=== PATIENT | female | born 1945 | race Caucasian/White ===

== ENCOUNTER 2020-06-10 12:12 | Outpatient (REF) | payer MEDICARE, OTHER, SELFPAY ==
--- NOTE | 2020-06-10 12:46 | XR_ITS ---
EXAMINATION: XR CHEST CLINICAL INFORMATION: Dyspnea. COMPARISON: Right ribs and chest radiographs dated 04/22/2020. TECHNIQUE: 2 views of the chest were obtained. FINDINGS: Support devices: A right-sided central venous port is again seen with tip terminating in the superior vena cava. There has been interval development of a moderate to large right pleural effusion. Minimal extension to the right apex is noted. The left lung is clear. The heart and mediastinal structures are unremarkable. IMPRESSION: 1. Moderate to large right pleural effusion represents significant interval worsening from the previous study.
[2020-06-10 13:18] LABS: Basophils Percent Auto 0.4 % (0-2); Eosinophils Absolute Auto 0.1 X10*3/uL (0.0-0.4); Eosinophils Percent Auto 1.4 % (0-4); Hematocrit 44.1 % (37-47); Hemoglobin 14.3 g/dl (12.0-16.0); Imm Gran Abs Auto 0.01 X10*3/uL (0.00-0.03); Imm Gran Pct Auto 0.2 % (0.0-0.4); Lymphocytes Absolute Auto 0.4 X10*3/uL (1.2-4.9); MANUAL DIFF FLAG SCAN; Mean Corpuscular HGB Conc 32.4 g/dl (31.0-35.0); Mean Corpuscular Hemoglobin 30.7 pg (27.0-33.0); Mean Corpuscular Volume 94.6 fL (80-98); Mean Platelet Volume 9.7 fL (9.4-12.3); Monocytes Absolute Auto 0.3 X10*3/uL (0.1-1.2); Monocytes Percent Auto 6.4 % (2-11); Neutrophils Absolute Auto 4.2 X10*3/uL (2.0-8.3); Neutrophils Percent Auto 84.6 % (45-73); Platelet Count 302 X10*3/uL (160-400); Red Blood Count 4.66 X10*6/uL (4.20-5.50); Red Cell Distribution Width 13.1 % (11.0-16.0); SCAN SMEAR FLAG 1
[2020-06-10 13:39] LABS: Anion Gap 14 (12-20); Blood Urea Nitrogen 8 mg/dL (9-16); Calcium 9.2 mg/dL (8.4-10.2); Carbon Dioxide 26 mmol/L (22-29); Chloride 104 mmol/L (96-108); Estimated Glomerular Filt Rate > 60; Glucose Random 87 mg/dL (60-115); Potassium 3.9 mmol/l (3.3-5.1); Sodium 140 mmol/L (135-145)
[2020-06-10 13:46] LABS: SLIDE REVIEW VERIFIED
== END 2020-06-10 12:13 | disposition home or self-care (01) ==
LOC: HO.LAB 12:12
PROVIDERS: PCP Internal Medicine; Visit Provider Internal Medicine
DX: R06.00 Dyspnea, unspecified (principal)
CPT/HCPCS: 36415; 71046; 80048; 85025

== ENCOUNTER → 2022-01-07 08:26 | Outpatient (RCR) | payer MEDICARE, OTHER, SELFPAY ==
--- NOTE | 2020-06-14 15:44 | MHC.PT.DC ---
[facility] [place] [facility] [place] [facility] [place] [facility] [address] Ivy Sandhu [address] [phone] F: [phone] F: [phone] F: [phone] F: [phone] Physical Therapy Discharge Report Diagnosis: is a 75 y/o female referred to PT for eval and treat of R sided rib pain. Pt reports R sided muscle pull type pain which has worsened since April; Reports XR Reports she had reached to put up a flag on a flag pole which may has precipitated though this is unclear. Pt reports about 3-4 hours of broken sleep at night with largely unrelenting Sx. Trialed trazadone which she reports has not really helped. Reports her pain is fairly constant, reports no aggravating factors to speak, though when asked she reports R sided rib pain with every deep breath, as well as when she coughs and sneezes. She has been assessed as having osteopenia upon bone density in the past. She also has a Hx of rectal CA with chemo therapy and resection in 2019. PMHx: Rectal CA with resection 2019 at [facility], colostomy, incontinence, osteopenia. Date of Surgery: Date of Evaluation: 06/03/20 Date of Discharge: 06/14/20 Treatments to Date: 1 Cancellations to Date: 1 No Shows to Date: 0 Discharge Status: Patient Elected to Stop Physician Discontinued Tx Discharge Summary: Therapy was placed on hold after review of imaging was recommended. Pt called to discontinue PT after f/u with d/t findings in new imaging studies. Electronically signed by: Please sign and return to therapist. Thank you for your referral.
== END | disposition home or self-care (01) ==
LOC: HO.PTCHIC 06-07 09:58
PROVIDERS: PCP Internal Medicine; Visit Provider Internal Medicine
DX: R07.81 Pleurodynia (principal)